=== PATIENT | male | born 1985 ===

== ENCOUNTER 2017-06-24 14:12 | Emergency (ER) | payer OTHER ==
[2017-06-24 14:18] VITALS: BP 114/77; PULSE 74; RESP 20; TEMP 98.4; O2SAT 98
--- NOTE | 2017-06-24 14:36 | ED PDOC ---
Lower Extremity Pain/Injury Time Seen by Provider: 06/24/17 14:18 Chief Complaint (Nursing): Lower Extremity Problem/Injury Chief Complaint (Provider): Lower Extremity Problem/Injury History Per: Patient History/Exam Limitations: no limitations Onset/Duration Of Symptoms: Days (x1 month) Current Symptoms Are (Timing): Still Present Additional Complaint(s): 32 y/o male presents to the emergency department with a complaint of a right knee pain with ambulation x1 month. Denies taking medication for the relief of pain, trauma, or injury. Denies any further medical complaints. Past Medical History Reviewed: Historical Data, Nursing Documentation, Vital Signs Vital Signs: Last Vital Signs Temp 98.4 F 06/24/17 14:17 Pulse 74 06/24/17 14:17 Resp 20 06/24/17 14:17 BP 114/77 06/24/17 14:17 Pulse Ox 98 06/24/17 14:17 - Medical History PMH: No Chronic Diseases - Surgical History Surgical History: No Surg Hx - Family History Family History: States: Unknown Family Hx - Social History Current smoker - smoking cessation education provided: No Alcohol: None Drugs: Denies - Home Medications Home Medications: Ambulatory Orders Medication Instructions Recorded Ibuprofen [Motrin] 600 mg PO Q6 #20 tab 06/24/17 - Allergies Allergies/Adverse Reactions: Allergies Allergy/AdvReac Type Severity Reaction Status Date / Time No Known Allergies Allergy Verified 06/24/17 14:15 Review of Systems ROS Statement: Except As Marked, All Systems Reviewed And Found Negative Constitutional: Negative for: Other (No trauma or injury) Musculoskeletal: Positive for: Other (Right knee pain) Physical Exam - Reviewed Nursing Documentation Reviewed: Yes Vital Signs Reviewed: Yes - Physical Exam Appears: Positive for: Non-toxic, No Acute Distress Head Exam: Positive for: ATRAUMATIC, NORMAL INSPECTION, NORMOCEPHALIC Skin: Positive for: Normal Color, Warm, Dry Neck: Positive for: Normal, Supple Extremity: Positive for: Normal ROM. Negative for: Calf Tenderness, Deformity, Swelling Neurologic/Psych: Positive for: Alert, Oriented (x3) - ECG O2 Sat by Pulse Oximetry: 98 (RA) Pulse Ox Interpretation: Normal Medical Decision Making Medical Decision Making: Time: 14:29 Initial impression: Right knee pain Initial plan: --Right knee x-ray --Motrin 600 mg PO --Reevaluation Time: 15:19 --Knee x-ray FINDINGS: BONES: Normal. No fracture. JOINTS: Normal. No osteoarthritis. JOINT EFFUSION: Suspect tiny joint effusion. OTHER FINDINGS: None. . IMPRESSION: No acute fracture nor dislocation. Suspect tiny joint effusion. Time: 15:43 Patient is medically stable, and requires no further treatment in the ED at this time. Patient will be discharged home with Rx for Motrin 600 mg. Counseling was provided and all questions were answered regarding diagnosis and need for follow up with Dr. Lcuas Mohan MD. There is agreement to discharge plan. Return if symptoms persist or worsen. Clinical Impression: Knee pain Scribe Attestation: Documented by Valentina Miller, acting as a scribe for Tabitha Galindo PA-C Provider Scribe Attestation: All medical record entries made by the Scribe were at my direction and personally dictated by me. I have reviewed the chart and agree that the record accurately reflects my personal performance of the history, physical exam, medical decision making, and the department course for this patient. I have also personally directed, reviewed, and agree with the discharge instructions and disposition. Disposition - Clinical Impression Clinical Impression: Knee pain, Knee effusion - Patient ED Disposition Is Patient to be Admitted: No Counseled Patient/Family Regarding: Studies Performed, Diagnosis, Need For Followup - Disposition Referrals: Lucas Mohan III, MD [Staff Provider] - Disposition: Routine/Home Disposition Time: 15:43 Condition: STABLE Prescriptions: Ibuprofen [Motrin] 600 mg PO Q6 #20 tab Instructions: Knee Pain (ED), Swollen Knee Joint (ED) Forms: [email or web address] ([place]ian)
--- NOTE | 2017-06-24 15:21 | RAD ---
PROCEDURE: Right Knee Radiographs. HISTORY: pain COMPARISON: None. FINDINGS: BONES: Normal. No fracture. JOINTS: Normal. No osteoarthritis. JOINT EFFUSION: Suspect tiny joint effusion. OTHER FINDINGS: None. . IMPRESSION: No acute fracture nor dislocation. Suspect tiny joint effusion.
== END 2017-06-24 16:00 | disposition home or self-care (01) ==
LOC: H.ER 14:12
DX: M25.561 Pain in right knee (principal)